=== PATIENT | female | born 1960 | race Caucasian/White ===

== ENCOUNTER 2020-08-11 09:28 | Emergency (ER) | payer OTHER ==
--- NOTE | 2020-08-11 09:33 | PDOC ---
History of Present Illness - General Chief Complaint: Chest Pain Stated Complaint: COUGH,CHEST PAIN,SOB,DIARRHEA Time Seen by Provider: 08/11/20 09:31 History Source: Patient Exam Limitations: No Limitations - History of Present Illness Initial Comments: 08/11/20 10:34 60y F hx of CAD sp CABG presents with complaint of diarrhea, body aches, mild cough, chest tightness. Patient states that she had some mild discomfort starting on tuesday - She was biking and then developed bilateral arm pain and tingling, consistent with prior herniated discs. She had a fish sandwich then de veloped vomiting on tuesday, today, she woke up with body aches and a phleghmy aches and some diarrhea. Pt states she otherwise hsa been quarantining away from othe rpeople, no known sick contacts. Pt denies any fever/chills, sore throat, body aches, [place], cp with exertion. She notes an brief episode of sob with her arm tingling when biking, but went on a 4 mile hike on tuesday and did not have any cp/sob or other discomfort. pt had a stres test within the past year that was negative. PMD: Jeannette ([place]) Past History - Medical History Allergies/Adverse Reactions: Allergies Allergy/AdvReac Type Severity Reaction Status Date / Time No Known Allergies Allergy Verified 08/11/20 09:29 Home Medications: Ambulatory Orders Alprazolam [Xanax] 0.5 mg PO HS 08/11/20 Aspirin [Ecotrin] 81 mg PO DAILY 08/11/20 Metoprolol Succinate 12.5 mg PO DAILY 08/11/20 Ramipril 5 mg PO DAILY 08/11/20 Rosuvastatin Calcium [Crestor] 10 mg PO DAILY 08/11/20 Review of Systems - Review of Systems Able to Perform ROS?: Yes Comments:: 08/11/20 10:48 Constitutional - +Body aches no reported Fever, Chills, HEENT: no reported vision changes, sore throat Respiratory: +sob, cough, no reported hemoptysis Cardiac: +chest pain, no reported palpitations, light headedness, leg swelling Abd/GI: +vomiting, diarrhea no reported abd pain, nausea, vomiting, blood per rectum, melena, diarrhea : no reported dysuria, frequency, discharge Musculskelatal - no reported back pain, joint swelling skin - no reported bruising, erythema, rash neurological: no reported headache, numbness, focal weakness, tingling, ataxia, hematologic: no reported easy bruising, easy bleeding *Physical Exam - Physical Exam 08/11/20 10:50 GENERAL: The patient is awake, alert, and fully oriented, Nontoxic - in no acute distress. HEAD: Normocephalic, atraumatic. EYES: extraocular movements intact, sclera anicteric, conjunctiva clear. ENT: Normal voice, Moist mucous membranes. NECK: Normal range of motion, supple LUNGS: Breath sounds equal, clear to auscultation bilaterally. No wheezes, no rhonchi, no rales. HEART: Regular rate and rhythm, normal S1 and S2 without murmur, rub or gallop. ABDOMEN: Soft, nontender, No guarding, no rebound. No CVA tenderness EXTREMITIES: Normal range of motion, no edema. NEUROLOGICAL: No facial assymetry, Normal speech, PSYCH: Normal mood, normal affect. SKIN: Warm, Dry, normal turgor, Heart Score/ECG Review - ECG Impressions Comment:: 08/11/20 10:50 Twelve-lead EKG was performed and reviewed by me. There is normal sinus rhythm Rate of 46 Mcguffey deviation The intervals are normal. There is normal R wave progression There are no ST or T wave abnormalities. Impression: Sinus bradycardia ED Treatment Course - LABORATORY CBC & Chemistry Diagram: 08/11/20 09:38 08/11/20 09:38 Medical Decision Making - Medical Decision Making 08/11/20 10:51 Differential for the patient's symptoms includes possible viral syndrome, COVID, consider possible ACS, viral enteritis Will obtain a blood work to screen for ACS, metabolic derangements COVID testing, chest x-ray, EKG She is noted to be bradycardic, no prior visit history here 08/11/20 11:47 pts labs reviewed pt noted she is always bradycardic, she is on 12.5 metoprolol, dose unchanged denies any signs of symptomatic bradycardia will obtain 2nd trop in 2 hours 08/11/20 12:44 Pt noted to have stress test in , noted for modeate inferolateral changes, but pt had case dw dr. Mullen, agree with holding her metoprolol as pt is otehrwise asymptmoatic bernardino seals, will reasess, if she is otherwise asytmpamtic will dc to fu wit dr. Mullen this week. 08/11/20 16:16 pt feeling well will dc with supportive care and cardiology fu return precautions were discussed I discussed the physical exam findings, ancillary test results and final diagnoses with the patient. I answered all of the patient's questions. The patient was satisfied with the care received and felt comfortable with the discharge plan and treatment plan. The patient will call their primary care physician within 24 hours to arrange follow-up and will return to the Emergency Department with any new, persistent or worsening symptoms. Discharge - Discharge Information Problems reviewed: Yes Clinical Impression/Diagnosis: Gastroenteritis, Bradycardia, Viral syndrome Condition: Improved Disposition: HOME - Admission No - Follow up/Referral Referrals: Delroy Tadeo MD [Primary Care Provider] - Etienne Mullen MD [Staff Physician] - - Patient Discharge Instructions Patient Printed Discharge Instructions: DI for Bradycardia, DI for Viral [place] roenteritis -- Adult Additional Instructions: Return to the emergency department immediately with ANY new, persistent or worsening symptoms including any chest pain, shortness of breath, nausea/vomiting, palpitations or other concerns. Stop taking your metoprolol until you follow-up with Dr. Mullen. You MUST call and follow up with your doctor in 2-3 days for further evaluation of your symptoms. Results were discussed with you. Please make sure your doctor reviews the results of your emergency evaluation. Your Emergency Department visit is not complete without a follow up with your doctor. Print Language: SETSWANA - Post Discharge Activity
[2020-08-11 09:34] VITALS: TEMP 99.3; BMI 30.2
[2020-08-11 10:48] LABS: ALBUMIN 4.5 g/dl (3.4-5.0); BILIRUBIN,TOTAL 0.9 mg/dl (0.2-1); CALCIUM 9.7 mg/dl (8.5-10); CREATININE 0.7 mg/dl (0.55-1.3); TOT PROT 7.3 g/dl (6.4-8.2)
[2020-08-11 10:49] LABS: BASO % 1.6 % (0-2.0); EOS % 0.3 % (0-4.5); HEMATOCRIT 41.7 % (32.4-45.2); HEMOGLOBIN 13.9 GM/dl (10.7-15.3); LYMPH % 28.1 % (8-40); MCH 30.9 pg (25.7-33.7); MCHC 33.4 g/dl (32.0-36.0); MEAN CELL VOLUME 92.7 fl (80-96); MEAN PLT VOLUME 8.7 fl (7.5-11.1); MONO % 3.1 % (3.8-10.2); NEUT % 66.9 % (42.8-82.8); PLATELET COUNT 329 K/MM3 (134-434); RDW 11.9 % (11.6-15.6); WHITE BLOOD COUNT 7.4 K/mm3 (4.0-10.8)
[2020-08-11] MEDS ORDERED: IBUPROFEN 400 MG TABLET (FP) PO ONE ×2 (11:48→11:51)
--- NOTE | 2020-08-11 14:09 | EKG ---
Test Reason : Blood Pressure : / mmHG Vent. Rate : 046 BPM Atrial Rate : 046 BPM P-R Int : 168 ms QRS Dur : 106 ms QT Int : 474 ms P-R-T Axes : 058 -36 018 degrees QTc Int : 414 ms SINUS BRADYCARDIA LEFT AXIS DEVIATION ABNORMAL ECG NO PREVIOUS ECGS AVAILABLE Confirmed by EASU GONZALES MD ([id number]) on 08/11/2020 2:08:51 PM Referred By: MARTHA MULLER Confirmed By:ESAU GONZALES MD
[2020-08-11 15:25] VITALS: BP 131/76; PULSE 50
== END 2020-08-11 16:26 | disposition home or self-care (01) ==
LOC: FER 09:28
DX: K52.9 Noninfective gastroenteritis and colitis, unspecified (principal); R00.1 Bradycardia, unspecified; B34.9 Viral infection, unspecified
CPT/HCPCS: 36415; 71045-TC-FY; 80053; 82550; 84484; 85025; 93005; 99285-25; U0003

== ENCOUNTER 2021-06-10 05:13 | Emergency (ER) | payer OTHER ==
[2021-06-10 05:44] VITALS: BP 143/82; PULSE 51; TEMP 98; BMI 31.1
[2021-06-10] MEDS ORDERED: ONDANSETRON 4 MG/2 ML VIAL IVPUSH ONE (05:55)
[2021-06-10] MEDS ORDERED: SODIUM CHLORIDE 1,000 ML IV STA (05:55)
[2021-06-10] MEDS ORDERED: ONDANSETRON 4 MG/2 ML VIAL ONE (06:10)
[2021-06-10 07:16] LABS: BASO % 0.5 % (0-2.0); EOS % 0.5 % (0-4.5); HEMATOCRIT 41.9 % (32.4-45.2); HEMOGLOBIN 14.5 GM/dL (10.7-15.3); LYMPH % 25.7 % (8-40); MCH 30.5 pg (25.7-33.7); MCHC 34.6 g/dl (32.0-36.0); MEAN CELL VOLUME 88.3 fl (80-96); MEAN PLT VOLUME 8.1 fl (7.5-11.1); NEUT % 67.3 % (42.8-82.8); PLATELET COUNT 284 10^3/uL (134-434); RBC 4.75 M/mm3 (3.60-5.2); RDW 12.9 % (11.6-15.6); WHITE BLOOD COUNT 8.7 K/mm3 (4.0-10.0)
[2021-06-10 07:34] LABS: CHLORIDE 107 mmol/L (98-107); SODIUM 140 mmol/L (136-145)
[2021-06-10 07:36] LABS: ALBUMIN 4.3 g/dl (3.4-5.0); ANION GAP 10 MMOL/L (8-16); BLOOD UREA NITROGEN 17.8 mg/dL (7-18); CALCIUM 9.4 mg/dL (8.5-10.1); CO2 23 mmol/L (21-32)
[2021-06-10 07:37] LABS: GLUCOSE,RANDOM 110 mg/dL (74-106)
[2021-06-10 07:40] LABS: CREATININE 0.7 mg/dL (0.55-1.3); SGOT/AST 12 U/L (15-37)
[2021-06-10 07:41] LABS: BILIRUBIN,TOTAL 0.4 mg/dL (0.2-1); SGPT/ALT 21 U/L (13-61)
[2021-06-10 07:43] LABS: ALK PHOS 48 U/L (45-117); TOT PROT 7.2 g/dl (6.4-8.2)
[2021-06-10 08:10] LABS: EPI CELLS 15 /uL (0-25.1); HYALINE CASTS 6 /uL (0-3.1); URINE APPEARANCE CLEAR; URINE BACTERIA 169 /uL (0-1359); URINE BILIRUBIN 1+ (NEGATIVE); URINE COLOR DK YELLOW; URINE GLUCOSE (UA) NEGATIVE (NEGATIVE); URINE KETONE TRACE (NEGATIVE); URINE LEUK ESTERASE TRACE (NEGATIVE); URINE NITRITE NEGATIVE (NEGATIVE); URINE PROTEIN 1+ (NEGATIVE); URINE RBC 66 /uL (0-23.9); URINE WBC 22 /uL (0-25.8)
== END 2021-06-10 09:21 | disposition home or self-care (01) ==
LOC: FER 05:13
PROC: 3E033GC Introduction of Other Therapeutic Substance into Peripheral Vein, Percutaneous Approach (ICD-10-PCS; principal; 2021-06-10)
PROC: 3E0337Z Introduction of Electrolytic and Water Balance Substance into Peripheral Vein, Percutaneous Approach (ICD-10-PCS; 2021-06-10)
DX: K52.9 Noninfective gastroenteritis and colitis, unspecified (principal)
CPT/HCPCS: 36415; 80053; 81003; 82550; 84484; 85025; 93005; 99284-25; C9803; U0003; U0005

== ENCOUNTER 2021-07-05 00:55 | Observation (INO) | payer OTHER ==
[2021-07-05 02:41] LABS: BASO % 0.5 % (0-2.0); EOS % 0.7 % (0-4.5); HEMATOCRIT 39.5 % (32.4-45.2); HEMOGLOBIN 13.8 GM/dL (10.7-15.3); MCH 30.7 pg (25.7-33.7); MCHC 34.8 g/dl (32.0-36.0); MEAN CELL VOLUME 88.1 fl (80-96); MEAN PLT VOLUME 8.4 fl (7.5-11.1); MONO % 6.5 % (3.8-10.2); NEUT % 43.3 % (42.8-82.8); PLATELET COUNT 278 10^3/uL (134-434); RBC 4.49 M/mm3 (3.60-5.2); RDW 12.8 % (11.6-15.6); WHITE BLOOD COUNT 8.7 K/mm3 (4.0-10.0)
[2021-07-05 03:03] LABS: CHLORIDE 108 mmol/L (98-107); SODIUM 139 mmol/L (136-145)
[2021-07-05 03:05] LABS: ALBUMIN 4.2 g/dl (3.4-5.0); ANION GAP 8 MMOL/L (8-16); BLOOD UREA NITROGEN 17.2 mg/dL (7-18); CALCIUM 9.2 mg/dL (8.5-10.1); CO2 24 mmol/L (21-32)
[2021-07-05 03:06] LABS: GLUCOSE,RANDOM 88 mg/dL (74-106)
[2021-07-05 03:08] LABS: CREATININE 0.7 mg/dL (0.55-1.3); SGOT/AST 13 U/L (15-37); SGPT/ALT 22 U/L (13-61)
[2021-07-05 03:10] LABS: BILIRUBIN,TOTAL 0.3 mg/dL (0.2-1); TOT PROT 7.3 g/dl (6.4-8.2)
[2021-07-05 03:11] LABS: ALK PHOS 45 U/L (45-117)
[2021-07-05] MEDS ORDERED: ACETAMINOPHEN 1000 MG/100 ML VIAL (NON FORMULARY) IVPB ONE (05:09)
[2021-07-05] MEDS ORDERED: SODIUM CHLORIDE 1,000 ML ONE (05:09)
[2021-07-05] MEDS ORDERED: ONDANSETRON 4 MG/2 ML VIAL IVPB ONE (05:09)
[2021-07-05] MEDS ORDERED: ACETAMINOPHEN INJECTION 100 ML IVPB ONE (05:29)
[2021-07-05] MEDS ORDERED: ONDANSETRON 4 MG/2 ML VIAL ONE (05:30)
[2021-07-05] MEDS ORDERED: FAMOTIDINE 20 MG/50 ML IVPB 20 MG/50 ML MG IVPB ONE (10:28)
[2021-07-05] MEDS ORDERED: MAG HYDROX/AL HYDROX/SIMETH -MYLANTA- ORAL SUSPENSION PO ONE (10:29)
[2021-07-05] MEDS ORDERED: LACTATED RINGERS SOLUTION 1000 ML INFUS.BAG IV ONE (10:30)
[2021-07-05] MEDS ORDERED: MAG HYDROX/AL HYDROX/SIMETH 30 ML UNIT-DOSE CUP PO ONE (11:00)
[2021-07-05 11:13] VITALS: TEMP 98.2; BMI 30.6
[2021-07-05 13:15] VITALS: BP 122/89; PULSE 52
[2021-07-05] MEDS ORDERED: ROSUVASTATIN CA 10 MG TABLET (FP) PO SCH (22:00)
[2021-07-06] MEDS ORDERED: RAMIPRIL 5 MG CAPSULE PO SCH (10:00)
== END 2021-07-05 13:17 | disposition home or self-care (01) ==
LOC: FER 00:55 → FM/S 05:36 → UNDOADMOB 05:36
PROVIDERS: ADMIT Internal Medicine; ATTEND Internal Medicine
PROC: 3E033GC Introduction of Other Therapeutic Substance into Peripheral Vein, Percutaneous Approach (ICD-10-PCS; principal; 2021-07-05)
PROC: 3E033NZ Introduction of Analgesics, Hypnotics, Sedatives into Peripheral Vein, Percutaneous Approach (ICD-10-PCS; 2021-07-05)
PROC: 3E0337Z Introduction of Electrolytic and Water Balance Substance into Peripheral Vein, Percutaneous Approach (ICD-10-PCS; 2021-07-05)
DX: I25.10 Atherosclerotic heart disease of native coronary artery without angina pectoris (principal); K21.9 Gastro-esophageal reflux disease without esophagitis; R07.9 Chest pain, unspecified; R06.02 Shortness of breath; E78.00 Pure hypercholesterolemia, unspecified; I10 Essential (primary) hypertension; E66.8 Other obesity; Z95.1 Presence of aortocoronary bypass graft; Z68.30 Body mass index [BMI] 30.0-30.9, adult; Z87.891 Personal history of nicotine dependence
CPT/HCPCS: 36415; 71045-TC-FY; 80053; 82550; 84484; 85025; 93005; 96361; 96365; 96375; 99285-25; C9803; G0378; J0131; U0003; U0005